=== PATIENT | male | born 1960 | race Caucasian/White ===

== ENCOUNTER 2018-05-29 19:29 | Emergency (ER) | payer MEDICAID ==
[2018-05-29] MEDS ORDERED: KETOROLAC TROMETHAMINE INJ/PF 30 MG/1 ML SDV IV ONE (21:20)
[2018-05-29] MEDS ORDERED: DEXAMETHASONE SOD PHOS INJ 10 MG/1 ML VIAL IV ONE (21:20)
[2018-05-29] MEDS ORDERED: DIAZEPAM INJ 10 MG/2 ML DISP.SYRIN IV ONE (21:20)
--- NOTE | 2018-05-29 21:28 | ER Document Report ---
ED General - General Chief Complaint: Low Back Pain Stated Complaint: BACK PAIN Time Seen by Provider: 05/29/18 21:11 TRAVEL OUTSIDE OF THE [place] IN LAST 30 DAYS: No - HPI Notes: 57-year-old male brought by EMS with severe lower back pain. Patient has a history of intermittent chronic low back pain. States today he developed gradually increasingly severe pain in his left lower back. Grossly nonradiating. Sharp, severe spasm. Cannot get comfortable. Worst he has had. No direct trauma. No recent overuse. No bowel or bladder dysfunction. No fevers. No unplanned weight loss. Brought by EMS who gave him Dilaudid IV in route. No other modifying factors, no other associated symptoms, no other provocative or palliative factors. - Related Data Allergies/Adverse Reactions: No Known Allergies Allergy (Unverified 05/29/18 19:34) Past Medical History - Social History Smoking Status: Current Every Day Smoker Frequency of alcohol use: Heavy Drug Abuse: None Family History: None Patient has suicidal ideation: No Patient has homicidal ideation: No - Past Medical History Cardiac Medical History: Reports: Hx Hypercholesterolemia, Hx Hypertension Pulmonary Medical History: Reports: Hx COPD Renal/ Medical History: Reports: Hx End Stage Renal Disease. Denies: Hx Peritoneal Dialysis - Immunizations Hx Diphtheria, Pertussis, Tetanus Vaccination: No Review of Systems - Review of Systems Notes: Review of systems as in the history of present illness, otherwise negative x 10 systems. Physical Exam - Vital signs Vitals: Temp Pulse Resp BP Pulse Ox 97.6 F 86 18 148/89 H 94 05/29/18 19:47 05/29/18 19:47 05/29/18 19:47 05/29/18 19:47 05/29/18 19:47 - Notes Notes: General: Well devloped, no acute distress. HEENT: Normocephalic, atraumatic. Pupils equal round reactive to light. Mucosa moist. No JVD. Chest: No trauma, normal excursion. Respiratory: Good air exchange, normal excursion. Cardiac: Regular rhythm Abdomen: Soft, benign. Nondistended. Back: No asymmetry or gross abnormality. Moderate left paralumbar spasm and paralumbar tenderness, no point vertebral tenderness. Motor: Grossly normal power and tone. Except limited by pain and hip flexion on the left. Neurologic: Alert, nonfocal. DTRs 1+ and symmetric at both knees and ankles. Vascular: Well perfused Skin: No petechiae or purpura Course - Re-evaluation Re-evalutation: 05/29/18 21:28 Notably well-appearing 57-year-old male with severe lower back pain. May be lumbar disc disease or exacerbation of chronic pain. However, given age and comorbidities, proceed with radiography to rule out bony abnormality such as met. Will treat with additional IV Valium, Decadron, Toradol and reassess 05/29/18 22:27 Patient has had substantial improvement with the after mentioned therapy. X- rays are unremarkable. He is discharged home with a prescription for Medrol Dosepak, Flexeril, tramadol. Outpatient follow-up. - Vital Signs Vital signs: Temp Pulse Resp BP Pulse Ox 97.6 F 86 18 148/89 H 94 05/29/18 19:47 05/29/18 19:47 05/29/18 19:47 05/29/18 19:47 05/29/18 19:47 Discharge - Discharge Clinical Impression: Back pain Qualifiers: Back pain location: low back pain Chronicity: acute Back pain laterality: left Sciatica presence: without sciatica Qualified Code(s): M54.5 - Low back pain Condition: Good Disposition: HOME, SELF-CARE Instructions: Low Back Pain ([facility]) Prescriptions: Methylprednisolone [Medrol Dosepack (4 mg/Tab) 21 Tab/Dosepak] 4 mg PO ASDIR PRN #21 tab.ds.pk PRN Reason: Tramadol HCl 50 mg PO Q6 #10 tablet
--- NOTE | 2018-05-29 22:18 | RADIOLOGY REPORT (SQ) ---
EXAM DESCRIPTION: L SPINE WHOLE COMPLETED DATE/TIME: 05/29/2018 9:52 pm REASON FOR STUDY: Severe pain, no trauma COMPARISON: None. NUMBER OF VIEWS: Five views including obliques. TECHNIQUE: AP, lateral, oblique, and sacral radiographic images acquired of the lumbar spine. LIMITATIONS: None. FINDINGS: MINERALIZATION: Normal. SEGMENTATION: Normal. No transitional anatomy. ALIGNMENT: Normal. VERTEBRAE: Maintained height. No fracture or worrisome bone lesion. DISCS: Multilevel disc space narrowing with osteophytes. POSTERIOR ELEMENTS: Pedicles and facets are intact. No pars defect or posterior arch defects. Facet arthropathy is present. HARDWARE: None in the spine. PARASPINAL SOFT TISSUES: Normal. PELVIS: Intact as visualized. No fractures or worrisome bone lesions. SI joints intact. OTHER: No other significant finding. IMPRESSION: SPONDYLOSIS WITHOUT BONE LESION OR FRACTURE. TECHNICAL DOCUMENTATION: JOB ID: [id number] [id number] 2010 [employer]- All Rights Reserved Reading location - IP/workstation name: [email or web address]
[2018-05-29 22:44] VITALS: BP 165/89
== END 2018-05-29 22:44 | disposition home or self-care (01) ==
LOC: ER 19:29
DX: M54.5 Low back pain (principal); R25.2 Cramp and spasm; F17.200 Nicotine dependence, unspecified, uncomplicated; J44.9 Chronic obstructive pulmonary disease, unspecified; I10 Essential (primary) hypertension
CPT/HCPCS: 99284; 96374; 96375; 72110; J3360; J1885; J1100